=== PATIENT | male | born 1970 | race Caucasian/White ===

== ENCOUNTER 2017-02-07 10:05 | Outpatient (CLI) | payer OTHER ==
[2013-10-01 04:50] VITALS: BP 144/88
== END 2017-02-07 10:06 ==
LOC: LAB 10:05
PROVIDERS: ATTEND Physician Assistant
DX: E11.9 Type 2 diabetes mellitus without complications (principal)
CPT/HCPCS: 36415; 83036

== ENCOUNTER 2018-01-22 11:27 | Outpatient (CLI) | payer OTHER ==
[2013-10-01 04:50] VITALS: BP 144/88
== END 2018-01-22 11:30 ==
LOC: LAB 11:27
PROVIDERS: ATTEND Physician Assistant
DX: E11.9 Type 2 diabetes mellitus without complications (principal)
CPT/HCPCS: 36415; 83036

== ENCOUNTER 2018-07-16 10:36 | Outpatient (CLI) | payer OTHER ==
[2013-10-01 04:50] VITALS: BP 144/88
[2018-07-16 11:27] LABS: eGFR (Non-African) > 60
== END 2018-07-16 10:42 | disposition home or self-care (01) ==
LOC: LAB 10:36
PROVIDERS: ATTEND Family Medicine
DX: E11.9 Type 2 diabetes mellitus without complications (principal); Z79.4 Long term (current) use of insulin
CPT/HCPCS: 36415; 80053; 80061; 82043; 83036

== ENCOUNTER 2019-02-07 10:55 | Outpatient (CLI) | payer OTHER ==
[2013-10-01 04:50] VITALS: BP 144/88
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
== END 2019-02-07 11:05 ==
LOC: RAD 10:55
PROVIDERS: ATTEND Nurse Practitioner Family
DX: Z04.3 Encounter for examination and observation following other accident (principal); S49.91XA Unspecified injury of right shoulder and upper arm, initial encounter; M54.5 Low back pain
CPT/HCPCS: 72072; 72100; 73030